=== PATIENT | female | born 1960 | race Caucasian/White ===

== ENCOUNTER 2023-01-01 14:17 | Outpatient (CLI) | payer OTHER ==
[~2023-01-01 14:17] MED LIST: LEVOTHYROXINE25 MCG PO; MIRALAX17 GM PO
== END 2023-01-01 14:28 | disposition home or self-care (01) ==
LOC: MAMO-SONO 14:17
PROVIDERS: ATTEND Obstetrics & Gynecology
DX: N60.11 Diffuse cystic mastopathy of right breast (principal); N60.12 Diffuse cystic mastopathy of left breast; Z12.31 Encounter for screening mammogram for malignant neoplasm of breast

== ENCOUNTER 2023-01-14 13:57 | Outpatient (CLI) | payer OTHER | END 2023-01-14 14:03 | disposition home or self-care (01) | LOC: NUCLEAR 13:57 | PROVIDERS: ATTEND Internal Medicine Rheumatology | DX: M81.0 Age-related osteoporosis without current pathological fracture (principal) ==

== ENCOUNTER 2024-08-11 10:56 | Outpatient (CLI) | payer OTHER | END 2024-08-11 11:06 | disposition home or self-care (01) | LOC: SONOGRAMA 10:56 | PROVIDERS: ATTEND Urology | DX: C67.1 Malignant neoplasm of dome of bladder (principal); N39.0 Urinary tract infection, site not specified ==

== ENCOUNTER → 2025-04-20 09:30 | Outpatient (CLI) | payer OTHER | END | disposition home or self-care (01) | LOC: NUCLEAR 09:30 | DX: M81.0 Age-related osteoporosis without current pathological fracture (principal) ==

== ENCOUNTER 2025-05-30 10:05 | Outpatient (CLI) | payer OTHER | END 2025-05-30 10:07 | disposition home or self-care (01) | LOC: RAD 10:05 | PROVIDERS: ATTEND Internal Medicine Rheumatology | DX: M75.82 Other shoulder lesions, left shoulder (principal) ==